=== PATIENT | male | born 1960 | race Caucasian/White ===

== ENCOUNTER 2016-08-28 22:13 | Emergency (ER) | payer OTHER ==
--- NOTE | 2016-08-29 00:01 | ERNOTE ---
Allergy Symptoms - ER Date of Service: 08/29/16 Presenting Symptoms: skin rash, itching Time Seen by Provider: 08/29/16 00:00 Source: patient Exam Limitations: no limitations Immunizations: IMMUNIZATION HX Immunizations Up to Date Yes History of Influenza Vaccine No Hx Pneumococcal Vaccination No Allergies/Adverse Reactions: Allergies No Known Allergies Allergy (Verified 09/30/14 08:12) Home Medications: HOME MEDICATIONS Lysine HCl [l-Lysine] 500 mg PO DAILY 09/23/14 [Last Taken Unknown] Methylprednisolone [Medrol Dosepak] 4 mg PO QID #21 tab 08/29/16 [Last Taken Unknown] - History of Present Illness Narrative: PT HERE FOR HIVES. STATES HE AWAKENED WITH HIVES AT 0500 ON 28 AUGUST . HE STARTED TAKING BENADRYL 50 MG EVERY 4-6 HRS AND IT SEEMED TO CALM ABOUT NON BUT INCREASED THRU THE AFTERNOON AND NIGHT. HE HAS NO IDES WHAT COULD HAVE CAUSED IT. NO SOB OR WHEEZE OR ORAL SWELLING. NEVER HAD BEFORE. LAST DOSE OF BENADRYL AT 2100. HE IS NOT ON ANY MEDS. Review of Systems - Review of Systems Constitutional: Present: See HPI EYE: Present: no symptoms reported ENT: Present: no symptoms reported Respiratory: Present: no symptoms reported Cardiology: Present: no symptoms reported Gastrointestinal/Abdominal: Present: no symptoms reported Genitourinary: Present: no symptoms reported Musculoskeletal: Present: no symptoms reported Skin: Present: See HPI, rash Neurological: Present: no symptoms reported Endocrine: Present: no symptoms reported Hematologic/Lymphatic: Present: no symptoms reported Psych: Present: no symptoms reported All Other Systems: All systems neg except as marked - Patient's Past Medical History Patient History - Medical: No pertinent hx Patient History - Cardiac/Respiratory: No pertinent hx Patient History - Cancer: No Hx of Cancer Patient History - Surgical Procedures: T & A, Vasectomy Patient History - Other: None - Social History Living Situations: spouse Abuse History: No History of abuse Psych History: No pertinent hx Smoking Status: Never smoker Alcohol Use: rarely Drug Use: none - Immunizations Immunizations Up to Date: Yes Hx Pneumococcal Vaccination: No History of Influenza Vaccine: No Physical Exam - Physical Exam General Appearance: Present: wd/wn, alert, mild distress - COVERED WITH URTICARIA AND TRYING TO AVOID SCRATCHING. Eye Exam: Normal inspection: bilateral Ears, Nose, Throat: Present: normal ENT inspection Neck: Present: normal inspection Respiratory: Present: no respiratory distress, normal breath sounds, no accessory muscle use, chest nontender, lungs clear Cardiovascular/Chest: Present: regular rate, rhythm, no murmur, normal peripheral pulses Neurological Exam: Present: alert, oriented, normal mood/affect Skin Exam: Present: skin rash - GENERALIZED URTICARIA. ED Progress - Vital Signs Patient's Vital Signs:: I have reviewed the patient's vital signs. Vital Signs: Vital Signs 08/28/16 08/28/16 22:17 22:24 Temperature 37.0 C Pulse Rate 81 Respiratory 18 18 Rate Blood Pressure 136/94 O2 Sat by Pulse 96 98 Oximetry - Progress/Reassessment Chief Complaint: Allergic Reaction Progress:: Improved - HAS DECREASED ITCHING AND SLIGHTLY DECREASED HIVES BUT NOT GONE THOUGH SAYS HE IS MORE COMFORTABLE. I AM GOING TO GIVE A DOSE OF PREDNISONE NOW AND RX OF MEDROL DOSE-DK - Transfer of Care Expected Disposition: Discharge Departure Clinical Impression: Full body hives - Departure Disposition: Home Follow Up Needed Condition: Fair Instructions: Hives, [id number] Additional Instructions: CONTINUE THE BENADRYL 50 MG EVERY 4-6 HRS UNTIL RASH IS GONE. ALSO TAKE ZANTAC OR PEPCID OVER THE COUNTER, 1 TAB TWICE A DAY UNTIL RASH IS GONE. USE THE MEDROL DOSE PACK DIRECTED. COOL COMPRESSES SOMETIMES HELP ALLEVIATE THE ITCH AND RASH SOME. SEE YOUR FAMILY DOCTOR IF NOT IMPROVED IN 4-5 DAYS OR SOONER IF WORSE. IF YOU DISCOVER WHAT MAY HAVE INITIATE THE HIVES, ( 95 % OF THE TIME YOU DO NOT), THEN AVOID IT. IF THE PROBLEM IS RECURRENT OR PROLONGED YOUR DOCTOR MAY SEND YOU TO AN LENS INSPECTOR. Referrals: Ran Ventura DO [Primary Care Provider] - Prescriptions: Methylprednisolone [Medrol Dosepak] 4 mg PO QID #21 tab
[2016-08-29] MEDS ORDERED: EPINEPHrine 1 MG/ML AMPUL SC ONE (00:09)
[2016-08-29] MEDS ORDERED: diphenhydrAMINE HCL 50 MG/ML VIAL IM ONE (00:09)
[2016-08-29] MEDS ORDERED: FAMOTIDINE 20 MG TABLET PO ONE (00:09)
[2016-08-29] MEDS ORDERED: EPINEPHrine 1 MG/ML AMPUL ONE (00:24)
[2016-08-29] MEDS ORDERED: FAMOTIDINE 20 MG TABLET ONE (00:24)
[2016-08-29] MEDS ORDERED: diphenhydrAMINE HCL 50 MG CAPSULE PO ONE (00:24)
[2016-08-29] MEDS ORDERED: diphenhydrAMINE HCL 50 MG/ML VIAL ONE (00:31)
[2016-08-29] MEDS ORDERED: predniSONE 20 MG TABLET PO ONE (01:16)
[2016-08-29] MEDS ORDERED: predniSONE 20 MG TABLET ONE (01:22)
[2016-08-29 01:30] VITALS: BP 130/69
== END 2016-08-29 01:33 | disposition home or self-care (01) ==
LOC: ER 22:13
DX: L50.9 Urticaria, unspecified (principal)